=== PATIENT | male | born 1980 | race Caucasian/White ===

== ENCOUNTER 2022-02-09 04:41 | Day surgery (SDC) | payer BC ==
[2022-02-06 09:28] VITALS: BMI 36.0
[2022-02-09] MEDS ORDERED: LIDOCAINE HCL 1%, 10 MG/ML (20ML VIAL) ONE (12:59)
[2022-02-09] MEDS ORDERED: BUPIVACAINE HCL/PF 0.5% (5MG/ML) 10 ML VIAL ONE (13:00)
[2022-02-09] MEDS ORDERED: MIDAZOLAM HCL 2 MG/2 ML SINGLE DOSE VIAL ONE (13:18)
[2022-02-09] MEDS ORDERED: PROPOFOL 20 ML ONE ×2 (13:18→14:14)
[2022-02-09] MEDS ORDERED: LIDOCAINE HCL 2% (20ML MULTI-DOSE VIAL) ONE (13:26)
[2022-02-09] MEDS ORDERED: ceFAZolin SODIUM 1 GM VIAL IVPB ONE (13:42)
[2022-02-09] MEDS ORDERED: oxyCODONE HCL 5 MG TABLET PO PRN (13:47)
[2022-02-09] MEDS ORDERED: ONDANSETRON 4 MG/2 ML VIAL IVPUSH PRN (13:47)
[2022-02-09] MEDS ORDERED: LIDOCAINE HCL 2% (50ML VIAL) NR ONE ×2 (13:51)
[2022-02-09] MEDS ORDERED: BUPIVACAINE HCL/PF 0.5% (5 MG/ML) 30 ML VIAL IJ ONE ×2 (13:51)
[2022-02-09] MEDS ORDERED: LACTATED RINGERS SOLUTION 1,000 ML IV SCH (14:00)
[2022-02-09 16:02] VITALS: TEMP 98
[2022-02-09 17:07] VITALS: BP 128/81; PULSE 70; RESP 20
== END 2022-02-09 14:30 | disposition home or self-care (01) ==
LOC: JASU-SURG 04:41
PROVIDERS: ATTEND Urology
PROC: 0VTQ0ZZ Resection of Bilateral Vas Deferens, Open Approach (ICD-10-PCS; principal; 2022-02-09 12:00)
DX: Z30.2 Encounter for sterilization (principal)
CPT/HCPCS: 88302-TC; 94760